=== PATIENT | female | born 1950 | race Caucasian/White ===

== ENCOUNTER 2022-04-16 11:16 | Outpatient (CLI) | payer MEDICARE | END 2022-04-16 11:17 | disposition home or self-care (01) | LOC: BICRAD 11:16 | PROVIDERS: ATTEND Nurse Practitioner Family | DX: M47.816 Spondylosis without myelopathy or radiculopathy, lumbar region (principal); M51.36 Other intervertebral disc degeneration, lumbar region | CPT/HCPCS: 72100 ==

== ENCOUNTER 2022-05-07 10:31 | Outpatient (CLI) | payer MEDICARE | END 2022-05-07 10:32 | disposition home or self-care (01) | LOC: BICMRI 10:31 | PROVIDERS: ATTEND Nurse Practitioner Family | DX: S32.020A Wedge compression fracture of second lumbar vertebra, initial encounter for closed fracture (principal); M47.816 Spondylosis without myelopathy or radiculopathy, lumbar region; M48.17 Ankylosing hyperostosis [Forestier], lumbosacral region; M43.8X6 Other specified deforming dorsopathies, lumbar region | CPT/HCPCS: 72148 ==

== ENCOUNTER 2024-04-06 10:00 | Outpatient (CLI) | payer MEDICARE | END 2024-04-06 10:01 | disposition home or self-care (01) | LOC: BICMRI 10:00 | PROVIDERS: ATTEND Nurse Practitioner Family | DX: M54.12 Radiculopathy, cervical region (principal); M48.02 Spinal stenosis, cervical region | CPT/HCPCS: 72141 ==

== ENCOUNTER 2025-05-24 12:28 | Outpatient (CLI) | payer MEDICARE | END 2025-05-24 12:29 | disposition home or self-care (01) | LOC: BICMAMMO 12:28 | PROVIDERS: ATTEND Nurse Practitioner Family | DX: Z12.31 Encounter for screening mammogram for malignant neoplasm of breast (principal); Z85.820 Personal history of malignant melanoma of skin | CPT/HCPCS: 77063; 77067 ==